=== PATIENT | male | born 1970 | race Caucasian/White ===

== ENCOUNTER 2016-12-21 09:00 | Emergency (ER) | payer OTHER ==
[2016-12-21] MEDS: SODIUM CHLORIDE 0.9% FLUSH 10 ML SOL IV PRN ×2 (09:15→09:49)
[2016-12-21 09:22] VITALS: TEMP 98.3
[2016-12-21] MEDS ORDERED: METOPROLOL TARTRATE 5 MG/5 ML SOL IV ONE ×2 (09:23→09:24)
[2016-12-21] MEDS ORDERED: ASPIRIN 81 MG CHEWABLE CTB ONE (09:24)
[2016-12-21] MEDS ORDERED: ASPIRIN 81 MG CHEWABLE CTB PO ONE (09:32)
[2016-12-21] MEDS ORDERED: DILTIAZEM 5 MG/ML SOL IV ONE ×5 (09:44→10:23)
[2016-12-21] MEDS ORDERED: DILTIAZEM 5 MG/ML 125 MG in SODIUM CHLORIDE 0.9% 100 ML 100 ML IV SCH (10:15)
[2016-12-21 11:28] VITALS: BP 152/106; PULSE 135; RESP 33; O2SAT 97
[2016-12-22] MEDS ORDERED: ASPIRIN 325 MG TAB PO SCH (09:00)
== END 2016-12-21 11:05 | disposition short-term general hospital (02) | DRG 310 ==
LOC: ED 09:00
DX: I48.91 Unspecified atrial fibrillation (principal); I10 Essential (primary) hypertension; R60.0 Localized edema; N50.89 Other specified disorders of the male genital organs
CPT/HCPCS: 82550; 93005; 99285